=== PATIENT | male | born 1995 | race African-American/Black ===

== ENCOUNTER 2016-09-02 09:10 | Emergency (ER) | payer OTHER ==
[2016-09-02 09:28] VITALS: BP 148/79
--- NOTE | 2016-09-02 09:41 | ED Physician Documentation ---
PD HPI MALE - Stated complaint Stated Complaint: GROIN PX - Chief complaint Chief Complaint: General - History obtained from History obtained from: Patient - History of Present Illness Timing - onset: How many hours ago (2), Today Timing - duration: Hours (2) Timing - details: Abrupt onset, Still present Associated symptoms: Testiclar pain (right side), Abdominal pain (lower abd), Other (denies recent injury. 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 Last meal was dinner last night.). No: Dysuria, Urinary frequency, Genital sore / lesion PD HPI MALE CONTRIB FACTORS: Sexually active. No: Exposed to STD Similar symptoms before: Has not had sx before Recently seen: Not recently seen Review of Systems Constitutional: denies: Fever, Chills Nose: denies: Rhinorrhea / runny nose, Congestion Throat: denies: Sore throat Respiratory: denies: Cough GI: reports: Nausea. denies: Vomiting, Constipation, Diarrhea : denies: Dysuria, Frequency, Discharge Skin: denies: Rash, Lesions PD PAST MEDICAL HISTORY - Past Medical History Past Medical History: No Cardiovascular: None Respiratory: None Neuro: None Endocrine/Autoimmune: None : None - Past Surgical History Past Surgical History: No - Allergies Allergies/Adverse Reactions: Allergies Allergy/AdvReac Type Severity Reaction Status Date / Time No Known Drug Allergies Allergy Verified 09/02/16 09:26 - Social History Does the pt smoke?: No Smoking Status: Never smoker - Immunizations Immunizations are current?: Yes PD ED PE NORMAL - Vitals Vital signs reviewed: Yes - General General: Alert and oriented X 3, No acute distress, Well developed/nourished - HEENT HEENT: Moist mucous membranes, Pharynx benign - Neck Neck: Supple, no meningeal sign, No adenopathy - Cardiac Cardiac: RRR, No murmur - Respiratory Respiratory: Clear bilaterally - Abdomen Abdomen: Normal bowel sounds, Soft, Non distended, No organomegaly, Other (mild tenderness suprapubic area without percussion tenderness nor guarding. ) - Male Male : Other (No rash nor sores. No inguinal adenopathy. Right testicle feels swollen with general marked tenderness. Left testicle is feeling normal. The lie on the right feels slightly diagonal. Will get U/S. ) - Rectal Rectal: Deferred - Back Back: No CVA TTP - Derm Derm: Normal color, No rash Results - Vitals Vitals: Vital Signs - 24 hr 09/02/16 09:21 Temperature 36.0 C L Heart Rate 60 Respiratory 18 Rate Blood Pressure 148/79 H O2 Saturation 100 Oxygen O2 Source Room air - Labs Labs: Laboratory Tests 09/02/16 11:25 Urine Color YELLOW Urine Clarity CLEAR Urine pH 7.0 Ur Specific [place] 1.015 Urine Protein NEGATIVE Urine Glucose (UA) NEGATIVE Urine Ketones NEGATIVE Urine Occult Blood NEGATIVE Urine Nitrite NEGATIVE Urine Bilirubin NEGATIVE Urine Urobilinogen 0.2 (NORMAL) Ur Leukocyte Esterase NEGATIVE Ur Microscopic Review NOT INDICATED Urine Culture Comments NOT INDICATED - Rads (name of study) Testicle U/S Radiology: Prelim report reviewed, Discussed with rads (Dr. Martinez reads no flow in right testicle and some swelling c/w torsion. ) PD MEDICAL DECISION MAKING - ED course Complexity details: reviewed results, considered differential (Patient did not want IV initially. Given PO meds with sips of water only. After U/S showing torsion/no flow, then IV started so he can get other meds and as prep for OR. Got stat EMS transfer.), d/w patient, d/w energy sales consultant (Dr. Murguia, Urology personnel research psychologist at [facility], who accepts patient on transfer directly to the OR. ) Departure - Departure Disposition: 02 Transfer Acute Care Hosp Clinical Impression: Right testicular pain, Testicular torsion Condition: Stable Record reviewed to determine appropriate education?: Yes
[2016-09-02] MEDS ORDERED: IBUPROFEN 800 MG TABLET PO STA (09:59)
[2016-09-02] MEDS ORDERED: HYDROcod/ACETAM 5/325 MG TABLET PO STA (09:59)
[2016-09-02] MEDS ORDERED: ONDANSETRON ODT 4 MG TABLET TL STA (09:59)
[2016-09-02] MEDS ORDERED: ONDANSETRON ODT 4 MG TABLET ONE (10:06)
[2016-09-02] MEDS ORDERED: IBUPROFEN 800 MG TABLET PO ONE (10:06)
[2016-09-02] MEDS ORDERED: HYDROcod/ACETAM 5/325 MG TABLET ONE (10:06)
[2016-09-02 11:33] LABS: BILIRUBIN,URINE NEGATIVE (NEGATIVE); UA CHARGE (STRIP ONLY) YES; UR CULTURE IF IND NOT INDICATED
--- NOTE | 2016-09-02 11:34 | Ultrasound Report ---
SCROTAL DUPLEX: 09/02/2016 CLINICAL INDICATION: Right scrotal pain and swelling. TECHNIQUE: Real-time sonographic vascular imaging was performed by the mini bar attendant through the scrotu m utilizing both color-flow and Doppler spectral analysis. Multiple bank representative static images wer e saved for review. FINDINGS: The right testicle measures 4.5 x 3.5 x 2.7 cm. The testicle appears hypoechoic. No flow is seen. The epididymis is enlarged, and demonstrates no flow. The left testicle measures 5.0 x 2.8 x 1.7 cm. Testicular flow and echotexture appears unremarkable. The left epididymis appears unremarkable. No varicocele is seen. A small right hydrocele is present. IMPRESSION: RIGHT TESTICULAR TORSION. CRITICAL RESULT: RESULTS CALLED TO DR. YEPEZ IN THE EMERGENCY DEPARTMENT ON 09/02/2016 AT 11:20 AM. JOB #: [id number] EXT JOB #:
[2016-09-02] MEDS ORDERED: MORPHINE 2 MG/ML SYRINGE IVP STA (11:39)
[2016-09-02] MEDS ORDERED: MORPHINE 2 MG/ML SYRINGE ONE (11:45)
== END 2016-09-02 12:00 | disposition short-term general hospital (02) ==
LOC: ED 09:10
DX: N44.00 Torsion of testis, unspecified (principal); N50.811 Right testicular pain
CPT/HCPCS: 76870; 81003; 87491; 87591; 93975; 96374; 99283; 99284; A9270; Q0162; 81001; 87086

== ENCOUNTER 2016-09-02 12:01 | Outpatient (CLI) | payer OTHER | END 2016-09-02 12:02 | disposition short-term general hospital (02) | LOC: EMS 12:01 | PROVIDERS: ATTEND Surgery | DX: N44.00 Torsion of testis, unspecified (principal) | CPT/HCPCS: A0425; A0427 ==

== ENCOUNTER 2020-06-30 21:11 | Emergency (ER) | payer OTHER ==
--- NOTE | 2020-06-30 21:32 | ED Physician Documentation ---
PD HPI UPPER EXT INJURY - Stated complaint Stated Complaint: R HAND INJ - Chief complaint Chief Complaint: Trauma Ext - History obtained from History obtained from: Patient - History of Present Illness Location: Right Type of injury: Blunt / blow Where injury occurred: Home Timing - onset: How many months ago (3-4) Associated symptoms: Swelling Recently seen: Not recently seen - Additonal information Additional information: patient says he sustained an injury to right hand while working on his car at home approximately 4 months ago. He has not seen a doctor for this. Today while at the gym, he perceived an asymmetry of his right 4th MCP joint compared to his other knuckles and comes to ED to have this evaluated. He denies pain, numbness. 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 Patient is right hand dominant. He also sustained a laceration to the fingertip of right middle finger 2 days ago. He is UTD on tetanus. Review of Systems Skin: reports: Laceration (s). denies: Abrasion (s) Musculoskeletal: denies: Extremity pain, Extremity swelling Neurologic: denies: Focal weakness, Numbness PD PAST MEDICAL HISTORY - Past Medical History Past Medical History: No Cardiovascular: None Respiratory: None Endocrine/Autoimmune: None : None - Past Surgical History Past Surgical History: No - Present Medications Home Medications: Ambulatory Orders Medication Instructions Recorded Confirmed No Known Home Medications 06/30/20 06/30/20 - Allergies Allergies/Adverse Reactions: Allergies Allergy/AdvReac Type Severity Reaction Status Date / Time No Known Drug Allergies Allergy Verified 06/30/20 21:18 - Social History Does the pt smoke?: No Smoking Status: Never smoker Does the pt drink ETOH?: No Does the pt have substance abuse?: Yes Substance Use and Type: Marijuana - Immunizations Immunizations are current?: Yes PD ED PE NORMAL - Vitals Vital signs reviewed: Yes - General General: Alert and oriented X 3, No acute distress, Well developed/nourished - Derm Derm: Normal color, Warm and dry - Extremities Extremities: No edema - Neuro Neuro: No motor deficit (LTS intact right third and fourth digits. FROM and strength in flexion and extension of right fourth digit including with isolation of MCP, PIP, and DIP joints in flexion testing. no obvious deformity), No sensory deficit, Other (1 cm healing laceration to tip of right middle finger) Results - Vitals Vitals: Vital Signs - 24 hr 06/30/20 06/30/20 06/30/20 21:14 21:23 21:28 Temperature 36.2 C L 36.2 C L Heart Rate 104 H 104 H 91 Respiratory 16 16 Rate Blood Pressure 113/50 L 113/50 L O2 Saturation 97 97 06/30/20 22:32 Temperature 36.3 C L Heart Rate 77 Respiratory 16 Rate Blood Pressure 107/78 O2 Saturation 99 Oxygen O2 Source Room air - Rads (name of study) xray right hand Radiology: Prelim report reviewed, See rad report PD MEDICAL DECISION MAKING - ED course Complexity details: reviewed results, re-evaluated patient, considered differential, d/w patient ED course: presents for evaluation of months-old injury without particular concern beyond perceived asymmetry of his right fourth "knuckle" (per patient; he indicates his right fourth MCP joint). I do not see any obvious deformity nor asymmetry and xrays performed to assess possible old fracture with suboptimal union, but the xrays are unremarkable for any injury, acute or otherwise. His laceration is small and 2 days old, and thus steristrips were placed rather than suture repair. Departure - Departure Disposition: 01 Home, Self Care Clinical Impression: Contusion of hand Qualifiers: Encounter type: initial encounter Laterality: right Qualified Code(s): S60.221A - Contusion of right hand, initial encounter Condition: Good Instructions: ED Contusion Hand Discharge Date/Time: 06/30/20 22:32
--- OUTSIDE RECORDS SUMMARY | 2020-06-30 22:24 | EXTERNAL MEDICAL SUMMARY RPT | Continuity of Care Document ---
:1995 Demographics Phone Unavailable Preferred Language Unknown Marital Status Unknown Catholic Affiliation Unknown Race Unknown Ethnic Group Unknown Author Organization [facility] Address [address] [place] [address] Phone Social History date description facility [phone]
[2020-06-30 22:33] VITALS: BP 107/78
--- NOTE | 2020-07-01 07:46 | XRAY Report ---
PROCEDURE: Hand 3 View RT INDICATIONS: Right hand injury TECHNIQUE: 3 views of the hand(s) acquired. COMPARISON: None. FINDINGS: Bones: No fractures or dislocations. No suspicious bony lesions. Soft tissues: No suspicious soft tissue calcifications. IMPRESSION: No acute finding. Reviewed by: Booker Gilbert MD on 07/01/2020 7:44 AM PDT Approved by: Booker Gilbert MD on 07/01/2020 7:44 AM PDT Station ID: [id number]
== END 2020-06-30 22:32 | disposition home or self-care (01) ==
LOC: ED 21:11
DX: S61.212A Laceration without foreign body of right middle finger without damage to nail, initial encounter (principal); W45.8XXA Other foreign body or object entering through skin, initial encounter; Y99.0 Civilian activity done for income or pay; S60.221A Contusion of right hand, initial encounter; W22.8XXA Striking against or struck by other objects, initial encounter; Y93.89 Activity, other specified; Y92.009 Unspecified place in unspecified non-institutional (private) residence as the place of occurrence of the external cause
CPT/HCPCS: 99282; 99283

== ENCOUNTER 2021-01-22 11:05 | Outpatient (CLI) | payer OTHER ==
--- NOTE | 2021-01-25 02:21 | XRAY Report ---
PROCEDURE: Knee 4 View LT INDICATIONS: LEFT KNEE PAIN TECHNIQUE: 4 views of the left knee(s) were acquired. COMPARISON: None. FINDINGS: Bones: No fractures or dislocations. No suspicious bony lesions. Soft tissues: No joint effusion. No suspicious soft tissue calcifications. Calcification is noted along the medial aspect of the left femoral condyle. IMPRESSION: Calcification along the medial femoral condyle. This could represent calcification along the medial collateral ligament. Reviewed by: Zoe Menezes MD on 01/25/2021 12:48 AM PDT Approved by: Zoe Menezes MD on 01/25/2021 12:48 AM PDT Station ID: [id number]
== END 2021-01-22 11:06 | disposition home or self-care (01) ==
LOC: DI.N 11:05
PROVIDERS: ATTEND Orthopaedic Surgery
DX: M25.562 Pain in left knee (principal); M25.862 Other specified joint disorders, left knee